=== PATIENT | male | born 1965 | race Caucasian/White ===

== ENCOUNTER 2023-04-16 14:29 | Outpatient (CLI) | payer BC, SELFPAY ==
--- NOTE | ~2023-04-16 | XR_ITS ---
XR hip RT min 2V DATE: 04/16/2023 15:06 INDICATION: Right hip pain TECHNIQUE: AP and lateral views COMPARISON: None FINDINGS: There is osteopenia. There is some flattening of the right femoral head. Consider MRI exami nation to exclude avascular necrosis if clinically appropriate. No fracture or dislocation or bone destruction of the right hip is noted. There is moderate right hip joint space narrowing and mild spurring, consistent with moderate osteoar thritis. Alignment appears intact at the pubic symphysis and sacroiliac joints. Prominent bilateral vas deferens calcifications, which is usually associated with diabetes. IMPRESSION: Mild flattening deformity of the right femoral head; consider MRI examination to exclude avascular necrosis of clinically appropriate Osteopenia Moderate right hip osteoarthritis Bilateral vas deferens calcifications suggesting diabetes Reviewed, dictated and finalized at location L. PER OPENER IMPRESSION: Mild flattening deformity of the right femoral head; consider MRI e xamination to exclude avascular necrosis of clinically appropriate Osteopenia Moderate right hip osteoarthritis Bilateral vas deferens calcifications suggesting diabetes
== END 2023-04-16 14:30 ==
LOC: MICIMG 14:34
PROVIDERS: PCP Nurse Practitioner Family; Visit Provider Nurse Practitioner Family
DX: M25.551 Pain in right hip (principal); M85.88 Other specified disorders of bone density and structure, other site; M16.11 Unilateral primary osteoarthritis, right hip
CPT/HCPCS: 73502

== ENCOUNTER 2023-08-27 13:49 | Outpatient (CLI) | payer BC, SELFPAY ==
--- NOTE | ~2023-08-27 | CT_ITS ---
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 Right hip pain. TECHNIQUE: Computed tomography (CT) of the right hip was performed without intravenous contrast. Auto mated exposure control and iterative reconstruction technique were employed. The dose-length product was 549.52 mGy-cm. 3-D volume rendered reconstructions were created by the technologist under radiolo gist supervision. COMPARISON: Pelvis and right hip radiographs 08/20/2023 FINDINGS: Bone alignment is normal. No fracture. There is severe right hip osteoarthritis. There is c ollapse of the articular surface of right femoral head. There is a small right hip joint effusion. 3-D volume rendered reconstructions of right hip demonstrate severe osteoarthritis. IMPRESSION: 1. Severe right hip osteoarthritis with collapse of the articular surface of right femoral head. 2. Small right hip joint effusion. Reviewed, dictated and finalized at location A. IMPRESSION: 1. Severe right hip osteoarthritis with collapse of the articular surface of ri ght femoral head. 2. Small right hip joint effusion.
== END 2023-08-27 13:50 ==
LOC: MICIMG 13:50
PROVIDERS: PCP Orthopaedic Surgery; Visit Provider Orthopaedic Surgery
DX: M16.11 Unilateral primary osteoarthritis, right hip (principal); M87.051 Idiopathic aseptic necrosis of right femur; M25.451 Effusion, right hip
CPT/HCPCS: 73700

== ENCOUNTER 2023-09-14 12:12 | Outpatient (CLI) | payer BC, SELFPAY ==
--- NOTE | 2023-09-14 12:22 | ECG_ITS ---
SEE SCANNED COPY FOR CONFIRMED REPORT MTDD
== END 2023-09-14 12:13 | disposition home or self-care (01) ==
LOC: ANHCARD 12:15
PROVIDERS: PCP Orthopaedic Surgery; Visit Provider Orthopaedic Surgery
DX: I10 Essential (primary) hypertension (principal)
CPT/HCPCS: 93005

== ENCOUNTER 2023-10-13 13:49 | Outpatient (CLI) | payer BC, SELFPAY ==
[2023-10-13 15:40] LABS: Albumin Level 4.3 g/dL (3.5-5.1)
[2023-10-13 15:47] LABS: Estimated Glomerular Filt Rate > 60
[2023-10-13 15:54] LABS: Partial Thromboplastin Time 27.4 Seconds (22.3-36.8); Prothrombin Time 13.5 Seconds (11.1-14.7)
[2023-10-13 16:13] LABS: Urine Cotinine NEGATIVE
[2023-10-13 16:42] LABS: MRSA (PCR) NOT DETECTED (NOT DETECTE)
== END 2023-10-13 13:50 | disposition home or self-care (01) ==
LOC: ANHSURGERY 13:54
PROVIDERS: PCP Nurse Practitioner Family; Visit Provider Orthopaedic Surgery
DX: M87.051 Idiopathic aseptic necrosis of right femur (principal); M16.11 Unilateral primary osteoarthritis, right hip; Z01.818 Encounter for other preprocedural examination
CPT/HCPCS: 80307; 82040; 82565; 85610; 85730; 87641

== ENCOUNTER 2023-10-28 15:33 | Observation (INO) | payer BC, SELFPAY ==
[2023-10-13 14:02] VITALS: BMI 34.4
--- NOTE | 2023-10-13 14:34 | PC.NURSE ---
Report to the Outpatient Waiting Room, entrance under the green pavilion located off [facility], at time __6:00AM on date __10/27/23 . Planned Procedure Time: ___7:30AM . Time changes happen often and if your time is changed the preop area will call you the afternoon before. - You and your visitor will be asked to self-screen and do not enter if you have any COVID symptoms. - A mask is optional within the hospital at this time. Patients may have clear liquids (water, carbonated beverages, clear teas, apple juice) until 3 hours prior to surgery with a maximum of 20 ounces. - No food from midnight until time of surgery. Take the following medications with a SIP of water the morning of surgery: NONE INSULIN PUMP ON BASAL RATE. DO NOT STOP ANY OF YOUR OTHER PRESCRIPTION MEDICATIONS PRIOR TO SURGERY ?EXCEPT THE FOLLOWING Medications to discontinue per physician ___HOLD ALL VITAMINS/SUPPLEMENTS 3 DAYS PRE-OP PER ANESTHESIA- LAST DOSE 10/23/23. HOLD NSAIDS(IBUPROFEN) PER DR PETE. Please no make-up, nail nepali, hairspray, perfume, deodorant, or body powder the day of surgery. No jewelry (including any body piercings) or valuables the day of surgery, leave them at home. Please take a shower or bath the night before, or the morning of, surgery with an antibacterial soap. Wear comfortable, loose fitting clothing. - Jewelry must be removed prior to entering the operating room. Rings and piercings that are not removed may be cut off. - The hospital will not accept responsibility for valuables. - Please leave all valuables, including medications, at home the day of surgery. If you are going home after surgery, a licensed semi driver must drive you home. - NO public transportation without another adult if you receive anesthesia. - We recommend that an adult stay with you for 24 hours following discharge. - We also recommend that you do not drive, make important decision, drink alcoholic beverages, or take any drugs that were not prescribed by your health care provider for at least 24 hours after your discharge time. Follow any additional instructions given to you from your surgeon. If you or anyone in your household have experienced Covid symptoms in the past week, please notify your surgeon or the nurse liaison at the phone number below for possible testing. Telephone instructions given to __PATIENT & WIFE and asked if any additional questions and then verbalized understanding. Patient advised to call surgeon office or pre surgery nurse liaison [phone] if any additional questions.
[2023-10-13 15:00] VITALS: BP 156/72; PULSE 73; RESP 16; TEMP 36.7; O2SAT 100
[2023-10-27] VITALS (13 sets, daily range): BP systolic 113–178; BP diastolic 46–83; PULSE 90–114; RESP 11–20; TEMP 36.6–37; O2SAT 92–100
[2023-10-27] MEDS: LACTATED RINGERS 1,000 ML 30 ML IV CONT ×2 (06:40→11:43)
[2023-10-27] MEDS: TRANEXAMIC ACID 1,000MG/ISO100 1,000 MG/100 ML BAG 200 MG IVPB (06:40)
[2023-10-27 06:53] LABS: Glucose Point of Care 140 mg/dl (65-105)
--- NOTE | 2023-10-27 06:54 | WPDANESEPPF ---
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 Patient Data Age: 57 Gender: M Height: 1.68 m Weight: 97.6 kg Last Vital Signs Temp 36.7 C 10/13/23 15:00 Pulse 73 10/13/23 15:00 Resp 16 10/13/23 15:00 BP 156/72 H 10/13/23 15:00 Pulse Ox 100 10/13/23 15:00 O2 Del Method Room Air 10/13/23 15:00 Allergies Allergy/AdvReac Type Severity Reaction Status Date / Time erythromycin base Allergy Unknown Verified 10/19/23 10:15 Home Medications Medication Instructions Recorded Confirmed Type atorvastatin 10 mg tablet (Lipitor) 10 mg PO DAILY 08/21/23 10/27/23 History insulin lispro protamine-lispro See Rx Instructions .Route .COMPLEX 08/21/23 10/27/23 History 100 unit/mL (50-50) subcutaneous susp (Humalog Mix 50-50 Insuln U-100) lisinopril 20 mg tablet 20 mg PO HS 08/21/23 10/27/23 History acetaminophen 500 mg tablet 1,000 mg PO Q6H PRN Pain 10/13/23 10/27/23 History cholecalciferol (vitamin D3) 50 150 mcg PO DAILY 10/13/23 10/27/23 History mcg (2,000 unit) tablet ezetimibe 10 mg tablet 10 mg PO DAILY 10/13/23 10/27/23 History ibuprofen 200 mg tablet 600 mg PO Q6H PRN Pain 10/13/23 10/27/23 History aspirin 325 mg tablet,delayed 325 mg PO Q12HR 28 days #56 tabs 10/27/23 Rx release oxycodone-acetaminophen 5 mg-325 1 - 2 tablet PO Q4-6H PRN pain #45 10/27/23 Rx mg tablet tabs Laboratory Tests 10/27/23 06:39 POC Capillary Glucose 140 H mg/dl (65-105) Patient hx anesthesia problems: none Family hx anesthesia problems: none Results Review: All pre-operative results and documents have been reviewed as part of the pre-operative evaluation. [facility] Surgical History Surgical History (Updated 10/29/23 @ 09:58 by JONH Pandya) S/P total hip arthroplasty Family History Family History Father Lung cancer Other Dementia in Alzheimer's disease Diabetes mellitus Social History Social History Smoking packs per day: 0.1 Smoking cigarettes per day: 2.0 Years smoked: 3 Smoking pack-years: 0.30 Smoking status: Former smoker Alcohol intake: current Drinks per week: 5 Substance use type: does not use Do You Feel Safe in your Home?: No Lack of Transportation: No Lack of Food: Never True Current Housing: I Have Housing Concerned About Future Housing: No Difficulty Paying Gas/Electric Bills: No Difficulty Paying for Meds: No Currently Unemployed: No Education: Decline to Answer Difficulty w/ Childcare or Family Care: No Living arrangements: with family Additional living arrangements comments: Occupation/Education: occupation Additional occupation/education comments: Ch[employer] @ [employer] Gender identity (if verbalized by the patient): Male Spiritual care concerns: No Anes - Eval Final PreProcedure Day of Procedure 10/27/23 06:54 Patient weight: obese Heart: regular rate and rhythm Lungs: clear to auscultation Airway: Mallampati scale class II Neurological: alert and oriented Last oral intake: >/= 8 hours ASA classification: III Emergent: no Anesthetic plan: proceed Anesthesia type and monitoring: general ETT and standard monitoring Results Review: All pre-operative results and documents have been reviewed as part of the pre-operative evaluation. Informed Consent: The patient's anesthetic plan and its attendant risks and benefits were discussed with the patient/family/POA. Questions were solicited and answers provided to the satisfaction of the patient/family/POA.
--- NOTE | 2023-10-27 07:17 | WPDHPUPDATE1 ---
History and Physical Update Update Date/Time: 10/27/23 07:17 History and Physical has been reviewed, including an updated exam of the patient. There are NO changes in the patient's condition. Risks, benefits, and alternatives have been discussed and questions answered. Patient agrees to proceed with procedure.
[2023-10-27] MEDS: ceFAZolin 2 GM/D5W 50 ML 2 GM/50 ML BAG IVPB ×3 (07:43→23:17)
[2023-10-27] MEDS: SODIUM CHLORIDE 0.9% IV 37.7 ML, MORPHINE SULFATE INJ (*CRX) 2 MG, ROPivacaine HCL 1% 2... INFILTRATE (08:55)
[2023-10-27] MEDS: TRANEXAMIC ACID 1,000 MG/10 ML AMPUL 1000 MG IV PUSH (10:48)
--- NOTE | 2023-10-27 12:02 | W.PM.PROC2 ---
Procedure Note - Detailed Date of Procedure 10/27/23 Pre-op Diagnosis right hip DJD with AVN Post-op Diagnosis Same Procedure Performed R MICHAEL Surgeon Maxi Tang MD Anesthesia General Description of Procedure THE PATIENT WAS TAKEN TO THE OPERATING ROOM IN STABLE CONDITION AND WAS PLACED IN THE LATERAL DECUBITUS AND THE RIGHT LOWER EXTREMITY WAS PREPPED AND DRAPED IN THE STERILE FASHION. INCISION WAS MADE IN THE POSTERIOR LATERAL SIDE OF THE HIP, DOWN TO THE FASCIA LAYER. THE FASCIA WAS INCISED. THE HIP WAS EXPOSED. THE SHORT EXTERNAL ROTATORS WERE EXPOSED. THE SCIATIC NERVE WAS IDENTIFIED. INCISION WAS MADE THROUGH THE SHORT EXTERNAL ROTATORS AND THE CAPSULE OF THE HIP JOINT. THE HIP WAS DISLOCATED. AN OSTEOTOMY WAS MADE TO THE FEMORAL NECK ABOUT 1 CM PROXIMAL TO THE LESSER TROCHANTER. THE ACETABULUM WAS EXPOSED. THERE WAS SEVERE DJD SEEN. BEGINNING WITH A 44 REAMER THE ACETABULUM WAS REAMED TO 51 MM. A 51 MM TRIAL WAS PLACED IN 35 DEG OF ABDUCTION AND ANTEVERSION WAS IN ALIGNMENT WITH THE TRANS ACETABULAR LIGAMENT. THE FIT WAS EXCELLENT. THE TRIAL WAS REMOVED. A 52 MM BIOMET G7 COMPONENT WAS THEN TAPPED IN TO PLACE IN 35 DEG OF ABDUCTION AND ANTEVERSION IN ALIGNMENT WITH THE TRANSVERSE ACETABULAR LIGAMENT. THE FIT WAS EXCELLENT. THE ACETABULAR TRIAL LINER WAS PLACED AND CHECKED FOR STABILITY. NEXT THE FEMUR WAS PREPARED WITH INITIAL CANAL FINDER THEN SEQUENTIAL BROACHING WITH A TAPERLOC HIP SYSTEM, UNTIL A 12 BROACH FIT WELL IN 15 OF ANTEVERSION. A 0 STANDARD OFFSET NECK WITH 36 MM HEAD TRIAL WAS PLACED. THE SHUCK TEST WAS EXCELLENT AND THE STABILITY IN FLEXION AND ROTATION WAS EXCELLENT. LEG LENGTHS WERE GROSSLY EQUAL. TRIALS WERE REMOVED. A DUAL MOBILITY LINER WAS PLACED IN THE ACETABULAR SHELL AND WAS STABLE. A BIOMET TAPERLOC 12 STEM WAS PLACED WITH A STANDARD OFFSET NECK. THE FIT WAS EXCELLENT IN 15 DEG OF ANTEVERSION. A 0 36 MM FEMORAL HEAD WAS PLACED INTO A DUAL MOBILITY POLY HEAD. THE HIP WAS REDUCED. THE HIP WAS TRIALED AND THE STABILITY WAS EXCELLENT WERE THE LEG LENGTHS AND THE SHUCK TEST. THE WOUND WAS IRRIGATED WITH STERILE BETADINE AND WATER FOR 3 MIN. THEN WASHED AGAIN. THE SCIATIC NERVE WAS IDENTIFIED AGAIN. THE CAPSULE AND THE EXTERNAL ROTATORS WERE APPROXIMATED WITH NUMBER 1 VICRYL. THE FASCIA WITH No 2 QUIL AND THE SUB CUTANEOUS LAYER WITH 2-0 ABSORBABLE SUTURE AND A RUNNING 3-0 SUBCUTICULAR STITCH FOR THE SKIN. DERMABOND WAS PLACED AND STERILE DRESSING WAS APPLIED. PATIENT WAS PLACED BACK ON TO THE SUPINE POSITION AND WAS EXTUBATED Estimated Blood Loss -400 Complications No immediate complications Condition Stable Disposition PACU
[2023-10-27] MEDS: KETOROLAC 15 MG/ML VIAL (*BKC) IV PUSH ×3 (12:15→23:17)
[2023-10-27] MEDS: fentaNYL CITRATE INJ (*CRX) 100 MCG/2 ML VIAL 25 MCG IV PUSH ×8 (12:15→13:05)
[2023-10-27 12:26] LABS: Glucose Point of Care 198 mg/dl (65-105)
--- NOTE | 2023-10-27 13:50 | ADMGEN ---
This patient, Memo Melo, was admitted to Medical Room 349-01. Patient/family oriented to hospital policies and general routines including ID bracelet, bed and alarms, visiting hours, pain management, procedures, bathroom and other care routines, personal items, smoking policy, room service/diet, and visiting hours. Information on how to activate the Rapid Response Team has been discussed. Patient/Family are encouraged to report perceived risks to care and to ask questions if they do not understand what they are told or what they should do.
[2023-10-27] MEDS: ONDANSETRON INJ 4 MG/2 ML VIAL IV PUSH ×2 (14:34→21:48)
--- NOTE | 2023-10-27 14:48 | PHAR ---
Humalog U-100 vial seen in pharmacy and returned to [facility] staff at rx window.
[2023-10-27] MEDS: SODIUM CHLORIDE 0.9% IV 1,000 ML 125 ML IV CONT ×2 (16:25→23:20)
[2023-10-27] MEDS: SENNA/DOCUSATE SODIUM TABLET 2 TAB PO (16:28)
[2023-10-27 17:06] LABS: Glucose Point of Care 230 mg/dl (65-105)
[2023-10-27] MEDS: FAMOTIDINE 20 MG TABLET PO (21:48)
[2023-10-27] MEDS: ASPIRIN 325 MG ENTERIC TABLET PO (21:48)
[2023-10-27] MEDS: oxyCODONE/ACETAMINOPHEN (*CRX) 10-325 MG TABLET 1 TAB PO (21:49)
[2023-10-27] MEDS: lisinopriL 20 MG TABLET PO (21:49)
[2023-10-27] MEDS: diazePAM (*CRX) 5 MG TABLET PO (21:49)
--- NOTE | ~2023-10-28 | XR_ITS ---
EXAMINATION: XR hip RT 1V DATE: 10/27/2023 12:04 INDICATION: Right total hip arthroplasty TECHNIQUE: AP portable view right hip FINDINGS: There is a right total hip arthroplasty in expected position. Subcutaneous gas with soft t issue swelling are consistent with recent surgery. IMPRESSION: 1. Recent right total hip arthroplasty. Reviewed, dictated and finalized at location B.
[2023-10-28 02:08] VITALS: BP 118/57; PULSE 91; RESP 18; TEMP 36.5; O2SAT 96
[2023-10-28 05:40] LABS: Basophils Percent Auto 0.2 % (0.2-1.2); Eosinophils Percent Auto 0.1 % (0-4.4); Hemoglobin 10.4 g/dL (14.0-18.0); Immature Granulocyte Absolute 0.11 K/mm3 (0.00-0.031); Immature Granulocyte Percent A 0.6 % (0-0.5); Lymphocytes Absolute Auto 1.76 K/mm3 (0.9-3.2); Lymphocytes Percent Auto 9.7 % (18.3-44.2); Mean Corpuscular HGB Conc 33.5 g/dl (32-36); Mean Corpuscular Hemoglobin 29.9 pg (26-34); Mean Corpuscular Volume 89.1 fl (80-100); Mean Platelet Volume 11.8 fl (7.4-10.4); Monocytes Absolute Auto 1.4 K/mm3 (0.1-0.6); Monocytes Percent Auto 7.7 % (2.6-8.5); Neutrophils Absolute Auto 14.8 K/mm3 (1.3-6.7); Neutrophils Percent Auto 81.7 % (45.5-73.1); Platelet Count Result 204 k/mm3 (150-375); Red Blood Count 3.48 M/mm3 (4.6-6.20); Red Cell Distribution Width 13.3 % (11.5-14.5); White Blood Count 18.2 K/mm3 (4.5-10.0)
[2023-10-28] MEDS: KETOROLAC 15 MG/ML VIAL (*BKC) IV PUSH (05:47)
[2023-10-28 05:55] LABS: Anion Gap 3 mmol/L (4-12); Blood Urea Nitrogen 15 mg/dL (9-20); Calcium 7.9 mg/dL (8.4-10.2); Carbon Dioxide 30 mmol/L (22-30); Chloride 104 mmol/L (98-107); Estimated CRCL calculation 78 ml/min; Estimated Glomerular Filt Rate > 60; Glucose 104 mg/dL (65-110); Sodium 137 mmol/L (137-145)
[2023-10-28 06:00] VITALS: BP 121/48; PULSE 87; RESP 18; TEMP 36.5; O2SAT 97
[2023-10-28 08:00] VITALS: PULSE 107; RESP 18; O2SAT 99
[2023-10-28 08:11] LABS: Glucose Point of Care 263 mg/dl (65-105)
[2023-10-28 08:17] LABS: Glucose Point of Care 131 mg/dl (65-105)
[2023-10-28] MEDS: ATORVASTATIN 10 MG TABLET PO (08:40)
[2023-10-28] MEDS: ceFAZolin 2 GM/D5W 50 ML 2 GM/50 ML BAG IVPB (08:40)
[2023-10-28] MEDS: FAMOTIDINE 20 MG TABLET PO ×2 (08:40→20:33)
[2023-10-28] MEDS: EZETIMIBE 10 MG TABLET PO (08:40)
[2023-10-28] MEDS: CHOLECALCIFEROL 1,000 UNITS TABLET 6000 UNITS PO (08:41)
[2023-10-28] MEDS: polyethylene glycoL 3350 17 GM POWD.PACK PO (08:41)
[2023-10-28] MEDS: ASPIRIN 325 MG ENTERIC TABLET PO ×2 (08:41→20:33)
[2023-10-28] MEDS: SENNA/DOCUSATE SODIUM TABLET 2 TAB PO ×2 (08:41→17:50)
[2023-10-28 09:08] VITALS: BP 120/56; PULSE 86; RESP 18; TEMP 36.5; O2SAT 98
[2023-10-28 10:30] VITALS: BMI 34.1
--- NOTE | 2023-10-28 10:56 | PCDIET ---
Physician consult for Diabetes. Please see nutritional teaching intervention. Thank you for the consult.
[2023-10-28] MEDS: oxyCODONE/ACETAMINOPHEN (*CRX) 10-325 MG TABLET 1 TAB PO (12:24)
[2023-10-28 13:56] VITALS: BP 150/60; PULSE 107; RESP 18; TEMP 37.7; O2SAT 99
--- NOTE | 2023-10-28 14:43 | PM.PNORT ---
Progress Note: A&P Assessment and Plan (1) S/P total hip arthroplasty: Code(s): Z96.649 - Presence of unspecified artificial hip joint Status: Acute Assessment and Plan: POD 1 WITH SLOW PROGRESS WITH PT. HE WILL NEED AN EXTRA DAY FOR PT. WE WILL EVALUATE HIM FOR DISCHARGE TOMORROW Subjective Subjective Date/Time Seen: 10/28/23 14:43 Interval history: POD 1 WITH SLOW PROGRESS WITH PT. NO CALF PAIN Exam Extrem: Other: VSS AFEBRILE DRESSING DRY NV INTACT NEG HOMANS SIGN CALF SOFT Objective Data Vital Signs Vital Signs: Vital Signs - 24 hr 10/27/23 18:20 10/27/23 21:08 10/28/23 02:08 Temperature 37.0 C 36.8 C 36.5 C Pulse Rate 106 H 114 H 91 Respiratory Rate 18 20 18 Blood Pressure 134/58 L 127/50 L 118/57 L Pulse Oximetry 98 98 96 10/28/23 06:00 10/28/23 09:08 10/28/23 13:56 Temperature 36.5 C 36.5 C 37.7 C H Pulse Rate 87 86 107 H Respiratory Rate 18 18 18 Blood Pressure 121/48 L 120/56 L 150/60 H Pulse Oximetry 97 98 99 Intake/Output Intake/Output: Intake & Output 10/25/23 10/26/23 10/27/23 10/28/23 23:59 23:59 23:59 23:59 Intake Total 1814.6 640 Balance 1814.6 640 Meds/Results Medications: Active Medications Generic Name Dose Route Start Last Admin Trade Name Freq PRN Reason Stop Dose Admin Aspirin 325 mg 10/27/23 21:00 10/28/23 08:41 Aspirin 325 Mg Enteric Tablet PO 325 mg Q12HR SHELLEY Administration Atorvastatin Calcium 10 mg 10/28/23 09:00 10/28/23 08:40 Atorvastatin 10 Mg Tablet PO 10 mg DAILY SHELLEY Administration Dextrose 12.5 gm 10/27/23 15:34 Dextrose 50% 25 Gm/50 Ml Syringe IV PUSH PRN PRN Hypoglycemia Protocol Diazepam 5 mg 10/27/23 07:24 10/27/23 21:49 Diazepam (*Crx) 5 Mg Tablet PO 5 mg Q6H PRN Administration Anxiety/Muscle Spasm Diphenhydramine HCl 25 mg 10/27/23 07:24 Diphenhydramine Hcl Inj 50 Mg/Ml Vial IV PUSH Q6H PRN Itching Ezetimibe 10 mg 10/28/23 09:00 10/28/23 08:40 Ezetimibe 10 Mg Tablet PO 10 mg DAILY SHELLEY Administration Famotidine 20 mg 10/27/23 21:00 10/28/23 08:40 Famotidine 20 Mg Tablet PO 20 mg Q12HR SHELLEY Administration Glucagon 1 mg 10/27/23 15:34 Glucagon For Inj 1 Mg Vial IM PRN PRN Hypoglycemia Protocol Glucose 15 gm 10/27/23 15:34 Glucose Oral Gel 15 Gm Of Glucse In 37.5 Gm Tube PO PRN PRN Hypoglycemia Protocol Hydromorphone HCl 1 mg 10/27/23 07:18 Hydromorphone Hcl Inj (*Crx) 1 Mg/Ml Syr IV PUSH Q2H PRN Breakthrough Pain Rated 7-10 or NPO Hydromorphone HCl 0.5 mg 10/27/23 07:18 Hydromorphone Hcl Inj (*Crx) 1 Mg/Ml Syr IV PUSH Q2H PRN Breakthrough Pain Rated 4-6 or NPO Sodium Chloride 1,000 mls @ 125 mls/hr 10/27/23 07:20 10/28/23 12:10 Normal Saline Iv IV CONT Not Given .Q8H SHELLEY Ibuprofen 800 mg in 200 mls @ 400 mls/hr 10/27/23 07:18 Caldolor 800 Mg/200 Ml IVPB Q6H PRN Breakthrough Pain Rated 1-3 or NPO Dextrose 1,000 mls @ 100 mls/hr 10/27/23 15:34 Dextrose 5% 1,000 Ml IVPB PRN PRN Hypoglycemia Protocol Insulin Human Regular 0 each 10/28/23 06:00 10/28/23 07:45 Home Medication Insulin SUB-Q Not Given DAILY@0600 SHELLEY Lisinopril 20 mg 10/27/23 21:00 10/27/23 21:49 Lisinopril 20 Mg Tablet PO 20 mg HS SHELLEY Administration Naloxone HCl 0.1 mg 10/27/23 07:18 Naloxone Hcl 0.4 Mg/Ml Vial IV PUSH Q2M PRN Opiate Reversal Ondansetron HCl 4 mg 10/27/23 07:18 10/27/23 21:48 Ondansetron Inj 4 Mg/2 Ml Vial IV PUSH 4 mg Q4H PRN Administration Nausea And Vomiting Oxycodone/Acetaminophen 1 tablet 10/27/23 07:24 Oxycodone/Acetaminophen (*Crx) 5-325 Mg Tablet PO Q4H PRN Pain Rated 4-6 Oxycodone/Acetaminophen 1 tab 10/27/23 07:24 10/28/23 12:24 Oxycodone/Acetaminophen (*Crx) 10-325 Mg Tablet PO 1 tab Q6H PRN Administration [place]
--- NOTE | 2023-10-28 15:06 | P.PNAN_ITS ---
Anes - Prog Note Post-Op Date/Time: 10/28/23 15:06 Cardiovascular status: normal Respiratory status: normal Airway patency: baseline Mental status: baseline Post-Op hydration status: normal Vital Signs: Last Vital Signs Temp 37.7 C H 10/28/23 13:56 Pulse 107 H 10/28/23 13:56 Resp 18 10/28/23 13:56 BP 150/60 H 10/28/23 13:56 Pulse Ox 99 10/28/23 13:56 O2 Del Method Room Air 10/27/23 14:09 O2 Flow Rate 8 10/27/23 11:43 Pain Score (VAS): 10/08 I/O: Intake & Output 10/27/23 10/28/23 10/28/23 23:59 07:59 15:59 Intake Total 964.6 400 240 Balance 964.6 400 240 Laboratory Tests 10/28/23 05:05 10/28/23 05:05 10/27/23 10/27/23 10/28/23 17:03 21:35 05:05 WBC 18.2 H RBC 3.48 L Hgb 10.4 L Hct 31.0 L MCV 89.1 MCH 29.9 MCHC 33.5 RDW 13.3 Plt Count 204 MPV 11.8 H Immature Gran % (Auto) 0.6 H Neut % (Auto) 81.7 H Lymph % (Auto) 9.7 L Dickinson % (Auto) 7.7 Eos % (Auto) 0.1 Baso % (Auto) 0.2 Lymph # (Auto) 1.76 Dickinson # (Auto) 1.4 H Eos # (Auto) 0.0 Baso # (Auto) 0.0 Abs Immat Gran (auto) 0.11 H Absolute Neuts (auto) 14.8 H Absolute Nucleated RBC 0.000 Nucleated RBC % 0.0 Sodium 137 Potassium 3.0 L Chloride 104 Carbon Dioxide 30 Anion Gap 3 L BUN 15 Creatinine 1.00 Estim Creat Clear Calc 78 Estimated GFR > 60 Glucose 104 POC Capillary Glucose 230 H 263 H Calcium 7.9 L 10/28/23 08:13 WBC RBC Hgb Hct MCV MCH MCHC RDW Plt Count MPV Immature Gran % (Auto) Neut % (Auto) Lymph % (Auto) Dickinson % (Auto) Eos % (Auto) Baso % (Auto) Lymph # (Auto) Dickinson # (Auto) Eos # (Auto) Baso # (Auto) Abs Immat Gran (auto) Absolute Neuts (auto) Absolute Nucleated RBC Nucleated RBC % Sodium Potassium Chloride Carbon Dioxide Anion Gap BUN Creatinine Estim Creat Clear Calc Estimated GFR Glucose POC Capillary Glucose 131 H Calcium Post-procedural complaints: none Patient Feedback: Patient satisfied with anesthetic care.
[2023-10-28 17:12] LABS: Glucose Point of Care 153 mg/dl (65-105)
[2023-10-28] MEDS: lisinopriL 20 MG TABLET PO (20:33)
[2023-10-28] MEDS: diazePAM (*CRX) 5 MG TABLET PO (20:33)
[2023-10-28 21:07] LABS: Glucose Point of Care 106 mg/dl (65-105)
[2023-10-28 23:12] VITALS: BP 125/55; PULSE 98; RESP 20; TEMP 36.6; O2SAT 100
[2023-10-29] MEDS: oxyCODONE/ACETAMINOPHEN (*CRX) 10-325 MG TABLET 1 TAB PO ×2 (00:45→08:00)
[2023-10-29 06:00] VITALS: BP 150/66; PULSE 106; RESP 16; TEMP 36.1; O2SAT 94
--- NOTE | 2023-10-29 07:18 | PC.NURSE ---
Pt self administers insulin via Omnipod at a rate of 1.5 units/hr as basal rate. Pt also has a Dexcom to self-monitor blood glucose. Staff checks pt's blood glucose ACHS. Patient insulin pump worksheet reviewed and documented in appropriate location.
[2023-10-29] MEDS: ASPIRIN 325 MG ENTERIC TABLET PO (08:02)
[2023-10-29] MEDS: EZETIMIBE 10 MG TABLET PO (08:02)
[2023-10-29] MEDS: SENNA/DOCUSATE SODIUM TABLET 2 TAB PO (08:02)
[2023-10-29] MEDS: ATORVASTATIN 10 MG TABLET PO (08:02)
[2023-10-29] MEDS: CHOLECALCIFEROL 1,000 UNITS TABLET 6000 UNITS PO (08:02)
[2023-10-29] MEDS: FAMOTIDINE 20 MG TABLET PO (08:02)
[2023-10-29] MEDS: polyethylene glycoL 3350 17 GM POWD.PACK PO (08:02)
[2023-10-29 08:55] LABS: Glucose Point of Care 162 mg/dl (65-105)
--- NOTE | 2023-10-29 09:43 | PM.PNORT ---
Progress Note: A&P Assessment and Plan (1) S/P total hip arthroplasty: Qualifiers: Laterality: right Qualified Code(s): Z96.641 - Presence of right artificial hip joint Code(s): Z96.649 - Presence of unspecified artificial hip joint Status: Acute Assessment and Plan: POD #1 : Right MICHAEL Continue PT/OT. WBAT. Walker. HIGH FALL RISK. Continue pain control. Ice Hip. Protect skin. DVT prophylaxis with Aspirin. SCDs. Incentive Spirometry Use reviewed. Monitor Dressing. Change prior to discharge. Bowel Regimen. Dispo: Home with Home Health pending progress with PT/OT (2) Diabetes: Code(s): E11.9 - Type 2 diabetes mellitus without complications Status: Acute Assessment and Plan: Home insulin pump resumed. Tolerating well. Time Spent With Patient Time: Reviewed history, exam, radiographs and current labs with attending MD and covering surgeon, Dr. Tang, who agrees with current plan as indicated above. No further recommendations from Dr. Tang at this time. Subjective Subjective Date/Time Seen: 10/29/23 09:43 Post Op day: 2 Interval history: POD #2: Right MICHAEL Patient doing much better today, pain well controlled. No new concerns. Hopeful for d/c home today. Review of Systems Review of Systems: All systems reviewed & are unremarkable except as noted in HPI and below Constitutional: Constitutional: Denies chills, Denies fever(s), Denies headache(s), Denies lethargy and Reports weakness ENT: Denies headache(s) Cardiovascular: Cardiovascular: Denies chest pain, Denies diaphoresis, Denies lightheadedness, Denies palpitations, Denies dyspnea and Denies dyspnea on exertion Respiratory: Respiratory: Denies cough, Denies dyspnea and Denies dyspnea on exertion Gastrointestinal: Gastrointestinal: Denies constipation, Denies diarrhea, Denies nausea and Denies vomiting Genitourinary: Genitourinary: Denies dysuria, Reports urinary frequency and Denies urinary hesitancy Musculoskeletal: Musculoskeletal: Reports joint swelling (Right Hip ) and Reports limited range of motion (Right Hip due to recent surgery ) Neurologic: Denies headache(s) and Reports weakness Endocrine: Endocrine: Denies palpitations Exam Const: General: comfortable and no acute distress Resp: Effort & Inspection: normal respiratory effort Cardio: Rate: regular rate Rhythm: regular rhythm GI: Inspection: non-distended Skin: General skin exam: normal color Other: Incision right hip c/d/i. Surrounding tissue without redness/warmth. Mild swelling consistent with recent surgery. No drainage. Neuro: Cognition (Neuro): normal cognition Speech: normal speech Extrem: Right lower extremity: normal to inspection, normal capillary refill, hip/thigh Details: tenderness Location: of the hip (Thigh soft ) Location: laterally and anteriorly, swelling Location: at the hip, abnormal ROM (limited consistent with recent surgery ) Details: pain with active ROM during and pain with passive ROM during and other (Incision c/d/i. ); no deformity and no unusual warmth, knee Details: normal to inspection; no tenderness and no swelling, lower leg (Negative Slime's Sign ) Details: normal to inspection and no edema; no tenderness, ankle (+ankle dorsiflexion/plantarflexion) Details: normal to inspection and no edema; no tenderness, no swelling and no ecchymosis and foot Details: normal capillary refill, toes with normal ROM, vascular exam Details: dorsalis pedis pulse present and motor-sensory exam Details: light-touch normal; no tenderness Objective Data Vital Signs Vital Signs: Vital Signs - 24 hr 10/28/23 13:56 10/28/23 20:20 10/28/23 23:12 Temperature 37.7 C H 36.6 C Pulse Rate 107 H 98 Respiratory Rate 18 20 Blood Pressure 150/60 H 125/55 L Pulse Oximetry 99 100 Oxygen Delivery Room Air 10/29/23 06:00 Temperature 36.1 C L Pulse Rate 106 H Respiratory Rate 16 Blood Pressure 150/66 H Pu
--- NOTE | 2023-10-29 11:36 | PM.DS ---
DS: Admitting Diagnosis Discharge Date 10/29/23 Admitting Diagnosis Right Hip DJD DS: Discharge Diagnosis Discharge Diagnosis (1) S/P total hip arthroplasty: Qualifiers: Laterality: right Qualified Code(s): Z96.641 - Presence of right artificial hip joint Code(s): Z96.649 - Presence of unspecified artificial hip joint Status: Acute Assessment and Plan: POD #1 : Right MICHAEL Continue PT/OT. WBAT. Walker. HIGH FALL RISK. Continue pain control. Ice Hip. Protect skin. DVT prophylaxis with Aspirin. SCDs. Incentive Spirometry Use reviewed. Monitor Dressing. Change prior to discharge. Bowel Regimen. Dispo: Home with Home Health pending progress with PT/OT (2) Diabetes: Code(s): E11.9 - Type 2 diabetes mellitus without complications Status: Acute Assessment and Plan: Home insulin pump resumed. Tolerating well. DS: Summary Hospital Course Reason for hospitalization: Right MICHAEL Hospital Course: 57 year old male admitted s/p Right MICHAEL for postoperative medical management, pain control and mobilization with PT/OT. Patient progressed well with PT/OT. Pain and vitals remained stable throughout. The patient has been cleared to be discharged home with home health at this time. All discharge care instructions reviewed at depth. New medications reviewed. Follow up planned for 3 weeks in the outpatient orthopedic clinic with Dr. Tang. Dr. Tang in agreement with safe discharge at this time. Status at Discharge Functional status at discharge: uses cane/walker Overall status at discharge: patient is progressing back to baseline Time Spent with Patient Time attestation: Total time spent providing and/or coordinating discharge services: Exam Const: General: comfortable and no acute distress Resp: Effort & Inspection: normal respiratory effort Cardio: Rate: regular rate Rhythm: regular rhythm GI: Inspection: non-distended Skin: General skin exam: normal color Other: Incision right hip c/d/i. Surrounding tissue without redness/warmth. Mild swelling consistent with recent surgery. No drainage. Neuro: Cognition (Neuro): normal cognition Speech: normal speech Extrem: Right lower extremity: normal to inspection, normal capillary refill, hip/thigh Details: tenderness Location: of the hip (Thigh soft ) Location: laterally and anteriorly, swelling Location: at the hip, abnormal ROM (limited consistent with recent surgery ) Details: pain with active ROM during and pain with passive ROM during and other (Incision c/d/i. ); no deformity and no unusual warmth, knee Details: normal to inspection; no tenderness and no swelling, lower leg (Negative Slime's Sign ) Details: normal to inspection and no edema; no tenderness, ankle (+ankle dorsiflexion/plantarflexion) Details: normal to inspection and no edema; no tenderness, no swelling and no ecchymosis and foot Details: normal capillary refill, toes with normal ROM, vascular exam Details: dorsalis pedis pulse present and motor-sensory exam Details: light-touch normal; no tenderness Other: VSS AFEBRILE DRESSING DRY NV INTACT NEG HOMANS SIGN CALF SOFT DS: Data Data Completed and Pending Labs on day of discharge: Labs from last 24 hours 10/29/23 10/28/23 10/28/23 08:52 20:25 17:06 POC Capillary Glucose 162 H 106 H 153 H Discharge Plan Discharge Attending physician on discharge: Maxi Tang Discharging Clinician: Mariaelena Coreas Patient Disposition: Home Health Service Activity: may shower Diet: diabetic Wound Care Instructions: follow printed instructions Discharge Instructions: Post Op Total Hip Replacement Instructions Dr. Maxi Tang [phone] Your dressing will be changed prior to your discharge. You will be sent home with one additional dressing to be changed on post op day 7 by the home health RN. You may remove the dressing on post op day 14. Your incision was closed with
[2023-10-29 12:19] LABS: Glucose Point of Care 143 mg/dl (65-105)
[2023-10-29 13:11] VITALS: BP 108/61; PULSE 95; RESP 18; TEMP 36.9; O2SAT 93
[2023-11-02 08:32] LABS: Glucose Point of Care 119 mg/dl (65-105)
== END 2023-10-29 13:15 | disposition home health service (06) ==
LOC: ANHSURGERY 15:40 → ANH3MED 15:40
PROVIDERS: Admitting Provider Orthopaedic Surgery; PCP Nurse Practitioner Family; Visit Provider Orthopaedic Surgery
PROC: (CPT 27130; principal; 2023-10-27 07:30)
DX: M87.051 Idiopathic aseptic necrosis of right femur (principal); M16.11 Unilateral primary osteoarthritis, right hip; E11.9 Type 2 diabetes mellitus without complications; Z79.4 Long term (current) use of insulin; Z79.82 Long term (current) use of aspirin; Z87.891 Personal history of nicotine dependence; E66.9 Obesity, unspecified; Z68.34 Body mass index [BMI] 34.0-34.9, adult
CPT/HCPCS: 27130; 36415; 73501; 80048; 80307; 82040; 82565; 82948; 85025; 85610; 85730; 86850; 86900; 86901; 87641; 97110; 97116; 97161; 97165; 97530; 97535; A9270; C1713; G0378; J0171; J0690; J1170; J1885; J2250; J2270; J2405; J2795; J3010; J7030; J7120